=== PATIENT | female | born 1965 | race Caucasian/White ===

== ENCOUNTER 2017-05-04 22:13 | Emergency (ER) | payer BC ==
[2017-05-04 22:19] VITALS: BP 112/74
--- NOTE | 2017-05-04 22:30 | EDM.PDOC ---
ED HPI GENERAL MEDICAL PROBLEM - General Chief Complaint: Upper Extremity Injury/Pain Stated Complaint: fell and hurt my L)wrist Time Seen by Provider: 05/04/17 22:22 Source of Information: Reports: Patient History Limitations: Reports: Intoxication - History of Present Illness INITIAL COMMENTS - FREE TEXT/NARRATIVE: Patient at [employer] was dancing and was twirled by partner which caused her to fall on outstretched left hand and wrist. Pain noted with flexion in the medial wrist region. No redness or swelling is noted Neurovascular intact. Onset: Today Onset Date: 05/04/17 Onset Time: 21:00 Duration: Hour(s):, Constant Location: Reports: Upper Extremity, Left, Radiates to (Left hand region.) Quality: Reports: Pressure, Throbbing Severity: Mild Improves with: Reports: None, Immobilization Worsens with: Reports: Movement Context: Reports: Trauma Associated Symptoms: Reports: No Other Symptoms Left Wrist Pain Score (Numeric/FACES): 7 - Related Data Allergies Allergy/AdvReac Type Severity Reaction Status Date / Time Penicillins Allergy Intermediate Cannot Verified 05/04/17 22:19 Remember Home Meds: Home Meds Estradiol [Estradiol] 1 mg PO DAILY 03/20/14 [History] Levothyroxine Sodium [Levothyroxine Sodium] 137 mg PO DAILY 03/20/14 [History] Past Medical History Cardiovascular History: Reports: None Respiratory History: Reports: None Gastrointestinal History: Reports: None Genitourinary History: Reports: None PRENATAL NURSE History: Reports: Other (See Below) (Hysterectomy) Musculoskeletal History: Reports: Fracture Neurological History: Reports: None Psychiatric History: Reports: None Endocrine/Metabolic History: Reports: Hypothyroidism Hematologic History: Reports: None Immunologic History: Reports: None Oncologic (Cancer) History: Reports: None Dermatologic History: Reports: None - Infectious Disease History Infectious Disease History: Reports: None - Past Surgical History HEENT Surgical History: Reports: Other (See Below) (Thyroidectomy) GI Surgical History: Reports: Cholecystectomy Female Surgical History: Reports: Other (See Below) (Hysterectomy) Endocrine Surgical History: Reports: Thyroidectomy Social & Family History - Family History Family Medical History: Noncontributory - Tobacco Use Smoking Status *Q: Current Every Day Smoker - Caffeine Use Caffeine Use: Reports: Coffee, Soda - Alcohol Use Alcohol Use History: Yes Alcohol Use in Last Twelve Months: Yes - Living Situation & Occupation Living situation: Reports: Occupation: Employed Review of Systems - Review of Systems Review Of Systems: See Below Constitutional: Reports: No Symptoms Eyes: Reports: No Symptoms Ears: Reports: No Symptoms Nose: Reports: No Symptoms Mouth/Throat: Reports: No Symptoms Respiratory: Reports: No Symptoms Cardiovascular: Reports: No Symptoms GI/Abdominal: Reports: No Symptoms Genitourinary: Reports: No Symptoms Musculoskeletal: Reports: Arm Pain, Hand Pain, Joint Swelling, Muscle Pain ( Minimal swelling noted.) Skin: Reports: No Symptoms. Denies: Bruising Neurological: Reports: No Symptoms Psychiatric: Reports: No Symptoms, Other (Intoxication) ED EXAM, GENERAL - Physical Exam Exam: See Below Exam Limited By: Intoxication General Appearance: Alert, WD/WN, Mild Distress Eye Exam: Bilateral Eye: Normal Fundi, Normal Inspection Ears: Normal External Exam, Normal Canal Ear Exam: Bilateral Ear: Auricle Normal, Canal Normal, TM normal Nose: Normal Inspection, Normal Mucosa, No Blood Throat/Mouth: Normal Inspection, Normal Lips Head: Atraumatic, Normocephalic Neck: Normal Inspection, Supple, Non-Tender, Full Range of Motion Respiratory/Chest: No Respiratory Distress, Lungs Clear, Normal Breath Sounds, No Accessory Muscle Use, Chest Non-Tender Cardiovascular: Normal Peripheral Pulses, Regular Rate, Rhythm, No Edema, No Gallop, No JVD, No Murmur, No Rub Peripheral Pulses: 2+: Brachial (L), Brachial (R), Radial (L), Radial (R) GI/Abdominal: Soft (Female) Exam: Deferred Rectal (Female) Exam: Deferred Back Exam: Normal Inspection, Full Range of Motion Extremities: Normal Inspection, Normal Range of Motion, Normal Capillary Refill , Other (Left wrist examination WNL tenderness noted with flexion-Neurovascular intact.) Neurological: Alert, Oriented, CN II-XII Intact, Normal Cognition, Normal Gait, Normal Reflexes, No Motor/Sensory Deficits Psychiatric: Normal Affect, Normal Mood Skin Exam: Warm, Dry, Intact, Normal Color. No: Ecchymosis Lymphatic: No Adenopathy Course - Vital Signs Last Recorded V/S: Last Vital Signs Temp 35.3 C 05/04/17 22:14 Pulse 64 05/04/17 22:14 Resp 20 05/04/17 22:14 BP 112/74 05/04/17 22:14 Pulse Ox 96 05/04/17 22:14 - Orders/Labs/Meds Orders: Active Orders 24 hr Category Date Time Status Wrist Comp Min 3V Lt [CR] Stat Exams 05/04/17 22:22 Ordered Departure - Departure Time of Disposition: 23:17 Disposition: Home, Self-Care 01 Condition: Good Clinical Impression: Wrist strain - Discharge Information Instructions: Cast or Splint Care, [id number] Forms: ED Department Discharge Additional Instructions: See Take HOme Sheet MLP Sign Off - Signature Requirements MLP Sign Off: No ED Communication - Discussed Case With (1) Discussed Case With (1): Radiologist (Awaiting Verification from Radiology) - Problem List & Annotations (1) Wrist strain SNOMED Code(s): 518767356 Code(s): S66.919A - STRAIN OF UNSP MUSC/FASC/TEND AT WRS/HND LV, UNSP HAND, INIT Status: Acute Qualifiers: Laterality: left - My Orders Last 24 Hours: My Active Orders 05/04/17 22:22 Wrist Comp Min 3V Lt [CR] Stat - Assessment/Plan Last 24 Hours: My Active Orders 05/04/17 22:22 Wrist Comp Min 3V Lt [CR] Stat Assessment:: Left Wrist Strain/Sprain Plan: Rest, Ice Elevation Keep splint on until read by Radiology NSAIDS as tolerated F/U with PCP Guerline Verdugo PAC on Sunday05-07-2017 or prn.
[2017-05-04] MEDS ORDERED: Ibuprofen 200 MG Tab PO ONE (23:11)
== END 2017-05-04 23:26 | disposition home or self-care (01) ==
LOC: CC.ED 22:13
DX: S66.912A Strain of unspecified muscle, fascia and tendon at wrist and hand level, left hand, initial encounter (principal); E03.9 Hypothyroidism, unspecified; F17.210 Nicotine dependence, cigarettes, uncomplicated; Z88.0 Allergy status to penicillin; Z79.899 Other long term (current) drug therapy; X50.1XXA Overexertion from prolonged static or awkward postures, initial encounter; Y93.41 Activity, dancing
CPT/HCPCS: 73110; 99283; A9270

== ENCOUNTER → 2022-05-12 | Day surgery (SDC) | payer BC ==
[~2022-05-12] MED LIST: Ketamine 200 MG/20 ML MDV ONE; Lactated Ringers 1,000 ML IV SCH; Propofol 200 MG/20 ML SDV ONE; fentaNYL 50 MCG/ML SDV ONE
[2022-05-12 12:35] VITALS: BP 102/59; PULSE 62
== END ==
LOC: CC.SDS 10:04
PROVIDERS: ATTEND Family Medicine
DX: K52.9 Noninfective gastroenteritis and colitis, unspecified (principal); E03.9 Hypothyroidism, unspecified; Z88.0 Allergy status to penicillin; Z79.899 Other long term (current) drug therapy; Z79.890 Hormone replacement therapy
CPT/HCPCS: J2704; J3010; J7120